=== PATIENT | male | born 1965 | race Caucasian/White ===

== ENCOUNTER 2017-06-04 09:51 | Emergency (ER) | payer OTHER ==
[~2017-06-04] VITALS: Ht 170.2 cm; Wt 98.9 kg
[~2017-06-04 09:51] MED LIST: [UNRECOGNIZED DRUG - CODE] PO
[2017-06-04] MEDS ORDERED: TETANUS-DIPTH-ACEL PERTUSSIS 0.5ML SYRG IM ONE (13:45)
[2017-06-04 14:20] VITALS: BP 140/79
[2017-06-06 08:56] LABS: Hepatitis B Surface Antibody Negative
[2017-06-06 09:06] LABS: Hepatitis B Surface Antigen Negative (Negative)
== END 2017-06-04 12:52 | disposition home or self-care (01) ==
LOC: ER 09:51
DX: Z77.21 Contact with and (suspected) exposure to potentially hazardous body fluids (principal); E11.9 Type 2 diabetes mellitus without complications; W46.0XXA Contact with hypodermic needle, initial encounter; Y93.89 Activity, other specified; Y92.89 Other specified places as the place of occurrence of the external cause; Y99.8 Other external cause status
CPT/HCPCS: 36415; 86703; 86706; 86803; 87340; 90471; 90715